=== PATIENT | female | born 1980 | race African-American/Black ===

== ENCOUNTER 2017-11-15 23:30 | Observation (INO) | payer BC ==
[~2017-11-15] VITALS: Ht 177.8 cm; Wt 125.2 kg
[2017-11-16 01:03] VITALS: BP_SYST 159
[2017-11-16 01:05] LABS: BASOPHILS # (AUTO) 0.1 K/uL (0.0-0.2); EOSINOPHILS # (AUTO) 0.2 K/uL (0.0-0.4); LYMPHOCYTES # (AUTO) 1.7 K/uL (1.0-5.5)
[2017-11-16 01:08] LABS: BASOPHILS % (AUTO) 0.8 % (0.0-2.0); EOSINOPHILS % (AUTO) 1.8 % (0.0-4.0); HEMATOCRIT 33.8 % (36-48); HEMOGLOBIN 11.6 g/dL (12.0-16.0); LYMPHOCYTES % (AUTO) 15.5 % (20.5-51.5); MEAN CORPUSCULAR HEMOGLOBIN 30 pg (27-31); MEAN CORPUSCULAR HGB CONC 34 % (32-36); MEAN CORPUSCULAR VOLUME 88 fL (79.0-98.0); MONOCYTES # (AUTO) 0.8 K/uL (0.0-1.0); MONOCYTES % (AUTO) 7.1 % (1.7-9.3); NEUTROPHILS # (AUTO) 7.9 K/uL (1.8-7.7); NEUTROPHILS % (AUTO) 74.8 % (40.0-70.0); PLATELET COUNT (AUTO) 239 K/uL (130-430); RED BLOOD CELL COUNT(AUTO) 3.83 MIL/uL (4.2-6.2); RED CELL DISTRIBUTION WIDTH 13.1 % (9.0-15.0); WHITE BLOOD COUNT (AUTO) 10.7 K/uL (4.8-10.8)
[2017-11-16 01:11] LABS: CALCIUM 8.7 mg/dL (8.4-11.0); CREATININE 0.87 mg/dL (0.55-1.30); POTASSIUM 4.2 mmol/L (3.5-5.1)
[2017-11-16 01:14] LABS: BILIRUBIN,URINE 1+ (NEGATIVE); BLOOD, URINE NEGATIVE (NEGATIVE); CLARITY/URINE CLOUDY (CLEAR); COLOR,URINE YELLOW (YELLOW); GLUCOSE,URINE NEGATIVE (NEGATIVE); KETONES,URINE TRACE (NEGATIVE); LEUKOCYTE ESTERASE ,URINE NEGATIVE (NEGATIVE); NITRITE, URINE NEGATIVE (NEGATIVE); PH,URINE 5.5 (5.0-8.0); PROTEIN URINE 1+ (NEGATIVE); UROBILINOGEN,URINE 0.2 (0.2-1.0)
[2017-11-16 01:15] LABS: ALBUMIN 2.4 g/dL (3.4-4.8); TOTAL BILIRUBIN 0.5 mg/dL (0.0-1.0); URIC ACID 7.4 mg/dL (2.4-7.0)
[2017-11-16 01:19] LABS: INR 0.9 (0.8-1.2); PROTHROMBIN TIME 9.3 SECS (9.5-12.5)
[2017-11-16 01:27] LABS: BACTERIA,URINE FEW /HPF (None Seen); RBC,URINE 0-3 /HPF (0-3); WBC,URINE 0-3 /HPF (0-3)
[2017-11-16] MEDS ORDERED: TEMAZEPAM 15 MG CAPSULE PO PRN (01:45)
[2017-11-16] MEDS ORDERED: ACETAMINOPHEN 325 MG TABLET PO PRN (09:00)
== END 2017-11-16 17:33 | disposition home or self-care (01) ==
LOC: SPU 23:30
PROVIDERS: ADMIT Specialist; ATTEND Specialist
DX: O16.3 Unspecified maternal hypertension, third trimester (principal); O26.893 Other specified pregnancy related conditions, third trimester; R51 Headache; O12.03 Gestational edema, third trimester; Z3A.36 36 weeks gestation of pregnancy
CPT/HCPCS: 36415; 80053; 81000; 81002; 81003; 82962; 84550; 85025; 85384; 85610; 85730; G0378 ×2

== ENCOUNTER 2019-07-07 12:40 | Inpatient (IN) | payer BC ==
[~2019-07-07] VITALS: Ht 177.8 cm; Wt 111.6 kg
[2019-07-07] MEDS ORDERED: LR 1,000 ML IV SCH (12:58)
[2019-07-07] MEDS ORDERED: LR 1,000 ML IV ONE (12:58)
[2019-07-07] MEDS ORDERED: OXYTOCIN/0.9 % SODIUM CHLORIDE 1,000 ML IV SCH (12:58)
[2019-07-07] MEDS ORDERED: TERBUTALINE SULFATE 1 MG/ML VIAL SUBCUT ONE (13:00)
[2019-07-07] MEDS ORDERED: AMPICILLIN SODIUM 2 GM in NS 100 ML IV ONE (13:00)
[2019-07-07 13:26] LABS: BASOPHILS % (AUTO) 0.4 % (0.0-2.0); EOSINOPHILS % (AUTO) 0.4 % (0.0-4.0); HEMATOCRIT 37.6 % (36-48); HEMOGLOBIN 12.7 g/dL (12.0-16.0); LYMPHOCYTES # (AUTO) 1.5 K/uL (1.0-5.5); LYMPHOCYTES % (AUTO) 15.9 % (20.5-51.5); MEAN CORPUSCULAR HEMOGLOBIN 31 pg (27-31); MEAN CORPUSCULAR HGB CONC 34 % (32-36); MEAN CORPUSCULAR VOLUME 91 fL (79.0-98.0); MONOCYTES # (AUTO) 0.5 K/uL (0.0-1.0); MONOCYTES % (AUTO) 5.4 % (1.7-9.3); NEUTROPHILS # (AUTO) 7.2 K/uL (1.8-7.7); NEUTROPHILS % (AUTO) 77.9 % (40.0-70.0); PLATELET COUNT (AUTO) 199 K/uL (130-430); RED BLOOD CELL COUNT(AUTO) 4.13 MIL/uL (4.2-6.2); RED CELL DISTRIBUTION WIDTH 14.6 % (9.0-15.0); WHITE BLOOD COUNT (AUTO) 9.2 K/uL (4.8-10.8)
[2019-07-07] MEDS: NALBUPHINE HCL 10 MG/ML AMP IVP PRN ×3 (16:09→22:23)
[2019-07-07] MEDS: AMPICILLIN SODIUM 1 GM in NS 50 ML IV SCH ×2 (16:51→20:46)
[2019-07-07 17:39] VITALS: BP_SYST 123
[2019-07-07] MEDS ORDERED: AMPICILLIN SODIUM 1 GM VIAL ONE (20:52)
[2019-07-07] MEDS ORDERED: fentaNYL CITRATE/PF 100 MCG/2 ML AMP ONE (22:58)
[2019-07-07] MEDS ORDERED: ROPIVACAINE HCL/PF 0.2% 200 ML ONE (22:59)
[2019-07-08] MEDS: AMPICILLIN SODIUM 1 GM in NS 50 ML IV SCH (01:02)
[2019-07-08] MEDS ORDERED: LR 500 ML IV ONE (03:40)
[2019-07-08] MEDS ORDERED: FENT2mCg/mL-ROPIVA0.2%/NS EPID 200 ML EP SCH (03:45)
[2019-07-08] MEDS ORDERED: LR 1,000 ML IV SCH ×2 (06:43→08:37)
[2019-07-08] MEDS ORDERED: CEFAZOLIN 2 GM IVPB PREMIX 50 ML IV ONE ×2 (06:45→07:06)
[2019-07-08] MEDS ORDERED: ACETAMINOPHEN 325 MG TABLET PO ONE (06:45)
[2019-07-08] MEDS ORDERED: ACETAMINOPHEN 325 MG TABLET ONE (07:25)
[2019-07-08] MEDS ORDERED: NALBUPHINE HCL 10 MG/ML AMP IVP PRN (08:15)
[2019-07-08] MEDS ORDERED: MORPHINE SULFATE 10MG/10ML PF AMP EP SCH (08:15)
[2019-07-08] MEDS ORDERED: DIPHENHYDRAMINE INJ 50 MG/ML VIAL IVP PRN (08:15)
[2019-07-08] MEDS ORDERED: NALOXONE HCL 0.4 MG/ML AMP (NARCAN) IVP PRN ×2 (08:15)
[2019-07-08] MEDS ORDERED: KETOROLAC TROMETHAMINE 60 MG/2 ML VIAL IM PRN (08:15)
[2019-07-08] MEDS ORDERED: fentaNYL CITRATE/PF 100 MCG/2 ML AMP IVP PRN ×2 (08:15)
[2019-07-08] MEDS ORDERED: ONDANSETRON HCL 4 MG/2 ML VIAL IVP PRN (08:15)
[2019-07-08] MEDS ORDERED: OXYTOCIN/0.9 % SODIUM CHLORIDE 1,000 ML IV ONE (08:37)
[2019-07-08 08:39] VITALS: BP_SYST 125
[2019-07-08] MEDS ORDERED: HYDROcodone/ACETAMIN 5-325 MG TAB (NORCO/ VICODIN) PO PRN (08:45)
[2019-07-08] MEDS ORDERED: ANUSOL 1 EA SUPP.RECT (PREPARATION H) RC PRN (08:45)
[2019-07-08] MEDS ORDERED: OXYCODONE/ACETAMINOPHEN 5-325 TABLET PO PRN ×2 (08:45)
[2019-07-08] MEDS ORDERED: NS 1000 ML IV.SOLN IV ONE (08:45)
[2019-07-08] MEDS ORDERED: LANOLIN 7 GM OINT. TP PRN (08:45)
[2019-07-08] MEDS ORDERED: BISACODYL 10 MG/SUPPOSITORY RC PRN (08:45)
[2019-07-08] MEDS ORDERED: RHO(D) IMMUNE GLOBULIN/MALTOSE 1500 UNITS/1.3 ML (WINHRO) IM PRN (08:45)
[2019-07-08] MEDS ORDERED: DOCUSATE SODIUM 100 MG CAPSULE PO PRN (08:45)
[2019-07-08] MEDS ORDERED: MEASLES,MUMPS&RUBELLA VACC/PF 12500 UNIT/0.5 ML VIAL SUBQ PRN (08:45)
[2019-07-08] MEDS ORDERED: KETOROLAC TROMETHAMINE 30 MG VIAL IVP PRN (08:45)
[2019-07-08] MEDS ORDERED: MORPHINE SULFATE 10MG/10ML PF AMP ONE (08:45)
[2019-07-08] MEDS ORDERED: NS IRRIG SOLN 1000 ML IR ONE (08:45)
[2019-07-08] MEDS ORDERED: DIPH-TET-PERTUS Vaccine 0.5 ML VIAL (ADACEL) I.M. PRN (08:45)
[2019-07-08] MEDS ORDERED: SENNOSIDES/DOCUSATE SODIUM 1 TAB TABLET(SENOKOT-S) PO PRN (08:45)
[2019-07-08] MEDS ORDERED: BUPIVACAINE /PF 0.75% 10 ML VIAL INJ ONE (08:45)
[2019-07-08] MEDS: CEFAZOLIN 1 GM IVPB PREMIX 50 ML IV SCH ×3 (12:04→23:44)
[2019-07-08] MEDS: KETOROLAC TROMETHAMINE 30 MG VIAL IVP SCH ×3 (12:44→23:48)
[2019-07-08] MEDS ORDERED: MEPERIDINE HCL/PF 50 MG/ML AMP IM ONE (16:00)
[2019-07-08] MEDS ORDERED: MEPERIDINE HCL/PF 50 MG/ML AMP ONE (16:20)
[2019-07-08] MEDS ORDERED: MEPERIDINE HCL/PF 25 MG/ML DISP.SYRIN IVP PRN (20:15)
[2019-07-08] MEDS ORDERED: TEMAZEPAM 15 MG CAPSULE PO PRN (21:00)
[2019-07-09 04:53] LABS: BASOPHILS % (AUTO) 0.1 % (0.0-2.0); EOSINOPHILS # (AUTO) 0.1 K/uL (0.0-0.4); HEMATOCRIT 28.7 % (36-48); HEMOGLOBIN 9.6 g/dL (12.0-16.0); LYMPHOCYTES # (AUTO) 1.7 K/uL (1.0-5.5); LYMPHOCYTES % (AUTO) 12.7 % (20.5-51.5); MEAN CORPUSCULAR HEMOGLOBIN 31 pg (27-31); MEAN CORPUSCULAR HGB CONC 33 % (32-36); MEAN CORPUSCULAR VOLUME 92 fL (79.0-98.0); MONOCYTES % (AUTO) 7.7 % (1.7-9.3); NEUTROPHILS # (AUTO) 10.5 K/uL (1.8-7.7); NEUTROPHILS % (AUTO) 78.5 % (40.0-70.0); PLATELET COUNT (AUTO) 164 K/uL (130-430); RED BLOOD CELL COUNT(AUTO) 3.13 MIL/uL (4.2-6.2); RED CELL DISTRIBUTION WIDTH 14.8 % (9.0-15.0); WHITE BLOOD COUNT (AUTO) 13.4 K/uL (4.8-10.8)
[2019-07-09] MEDS: KETOROLAC TROMETHAMINE 30 MG VIAL IVP SCH (06:22)
[2019-07-09] MEDS: SIMETHICONE 80 MG TAB.CHEW PO PRN ×2 (10:07→17:57)
[2019-07-09] MEDS: IBUPROFEN 600 MG TABLET PO SCH ×2 (11:59→17:57)
[2019-07-10] MEDS: IBUPROFEN 600 MG TABLET PO SCH ×2 (00:08→06:25)
== END 2019-07-10 11:52 | disposition home or self-care (01) | DRG 788 ==
LOC: OBSVTOIN 12:40 → SPU 12:40
PROVIDERS: ADMIT Specialist; ATTEND Specialist
PROC: 10907ZC Drainage of Amniotic Fluid, Therapeutic from Products of Conception, Via Natural or Artificial Opening (ICD-10-PCS; 2019-07-08)
PROC: 10D00Z1 Extraction of Products of Conception, Low, Open Approach (ICD-10-PCS; principal; 2019-07-08 07:30)
DX: O24.429 Gestational diabetes mellitus in childbirth, unspecified control (principal); O62.2 Other uterine inertia; O32.4XX0 Maternal care for high head at term, not applicable or unspecified; O69.81X0 Labor and delivery complicated by cord around neck, without compression, not applicable or unspecified; O99.824 Streptococcus B carrier state complicating childbirth; O33.9 Maternal care for disproportion, unspecified; Z3A.40 40 weeks gestation of pregnancy; Z37.0 Single live birth
CPT/HCPCS: 36415; 85025; 86592; 86886; 86900; 86901; J0290; J0690; J1885; J2175; J2274; J2300; J2590; J3010; J3490; J7030; J7120